=== PATIENT | male | born 1960 | race Caucasian/White ===

== ENCOUNTER 2018-03-14 05:30 | Emergency (ER) | payer SELFPAY ==
[2018-03-14 05:40] VITALS: BMI 36.9
[2018-03-14 05:46] VITALS: BP 146/90; PULSE 68; RESP 18; TEMP 98.2; O2SAT 98
[2018-03-14] MEDS ORDERED: Tobramycin 0.3% OPHT SOLN OU STA (05:55)
--- NOTE | 2018-03-14 05:57 | ED PDOC ---
Arrival/HPI - General Chief Complaint: Eye Problem Time Seen by Provider: 03/14/18 05:33 Historian: Patient - History of Present Illness Narrative History of Present Illness (Text): 03/14/18 05:54 A 57 year old male, with no significant past medical history, presents to the Emergency Department with a complaint of bilateral eye redness. Patient states that he was concerned today when he noticed discharge coming out of his right eye. He denies any visual disturbances, fevers, chills, headache, dizziness, sore throat, cough, chest pain, shortness of breath, dyspnea on exertion, abdominal pain, nausea, vomiting, diarrhea, neck/back pain, urinary/bowel changes or any other complaint. Time/Duration: Prior to Arrival Symptom Onset: Sudden Symptom Course: Unchanged Activities at Onset: Rest, Light Context: Home Past Medical History - Provider Review Nursing Documentation Reviewed: Yes - Cardiac Hx Angina: Yes - Psychiatric Hx Substance Use: No Family/Social History - Physician Review Nursing Documentation Reviewed: Yes Family/Social History: No Known Family HX Smoking Status: Never Smoked Hx Alcohol Use: No Hx Substance Use: No Allergies/Home Meds Allergies/Adverse Reactions: Allergies No Known Allergies Allergy (Verified 03/14/18 05:39) Review of Systems - Physician Review All systems were reviewed & negative as marked: Yes - Review of Systems Constitutional: absent: Fevers Eyes: Other (Itchiness and discharge) Respiratory: absent: SOB, Cough Cardiovascular: absent: Chest Pain, MONTE Gastrointestinal: absent: Abdominal Pain, Stool Changes, Diarrhea, Nausea, Vomiting Genitourinary Male: absent: Urinary Output Changes Musculoskeletal: absent: Back Pain, Neck Pain Neurological: absent: Headache, Dizziness Physical Exam Vital Signs Reviewed: Yes Vital Signs Temp Pulse Resp BP Pulse Ox 03/14/18 05:40 98.2 F 68 18 146/90 98 Temperature: Afebrile Blood Pressure: Normal Pulse: Regular Respiratory Rate: Normal Appearance: Positive for: Well-Appearing, Non-Toxic, Comfortable Pain Distress: None Mental Status: Positive for: Alert and Oriented X 3 - Systems Exam Head: Present: Atraumatic, Normocephalic Pupils: Present: PERRL Extroacular Muscles: Present: EOMI Conjunctiva: Present: Other (Minimal bilateral subconjunctival erythema. Scanty discharge from right eye. ) Mouth: Present: Moist Mucous Membranes Neck: Present: Normal Range of Motion Respiratory/Chest: Present: Clear to Auscultation, Good Air Exchange. No: Respiratory Distress, Accessory Muscle Use Cardiovascular: Present: Regular Rate and Rhythm, Normal S1, S2. No: Murmurs Abdomen: No: Tenderness, Distention, Peritoneal Signs Back: Present: Normal Inspection Upper Extremity: Present: Normal Inspection. No: Cyanosis, Edema Lower Extremity: Present: Normal Inspection. No: Edema Neurological: Present: GCS=15, CN II-XII Intact, Speech Normal Skin: Present: Warm, Dry, Normal Color. No: Rashes Psychiatric: Present: Alert, Oriented x 3, Normal Insight, Normal Concentration Medical Decision Making ED Course and Treatment: 03/14/18 05:59 Impression: A 57 year old male presents to the Emergency Department for complaint of bilateral eye itchiness and scanty discharge from right eye. Plan: -- Tobrex -- Reassess and disposition Progress Notes: - Medication Orders Current Medication Orders: Discontinued Medications Tobramycin Sulfate (Tobrex 0.3% Ophth Soln) 2 drop OU ONCE STA Stop: 03/14/18 05:56 Last Admin: 03/14/18 06:02 Dose: 2 drop - Scribe Statement The provider has reviewed the documentation as recorded by the Scribe Mechelle Chambers Provider Scribe Attestation: All medical record entries made by the Scribe were at my direction and personally dictated by me. I have reviewed the chart and agree that the record accurately reflects my personal performance of the history, physical exam, medical decision making, and the department course for this patient. I have also personally directed, reviewed, and agree with the discharge instructions and disposition. Disposition/Present on Arrival - Present on Arrival Any Indicators Present on Arrival: No History of DVT/PE: No History of Uncontrolled Diabetes: No Urinary Catheter: No History of Decub. Ulcer: No History Surgical Site Infection Following: None - Disposition Have Diagnosis and Disposition been Completed?: Yes Diagnosis: Conjunctivitis Disposition: HOME/ ROUTINE Disposition Time: 06:11 Patient Plan: Discharge Condition: GOOD Discharge Instructions (ExitCare): Conjunctivitis ([place]) (DC) Additional Instructions: Place antibiotic eyedrops 2 drops each eye 4 times daily/avoid rubbing your eyes/use tissue/follow up with your doctor Prescriptions: Tobramycin 0.3% [Tobrex 0.3% Ophth Soln] 2 drop OU QID #1 bottle Forms: [facility] [employer] (T[place]isian)
== END 2018-03-14 06:30 | disposition home or self-care (01) ==
LOC: ED 05:30
DX: H10.9 Unspecified conjunctivitis (principal)